=== PATIENT | female | born 1945 | race Asian ===

== ENCOUNTER → 2017-04-05 | Outpatient (CLI) | payer MEDICARE, OTHER ==
[~2017-04-05] MED LIST: CAND4 PO; METF500T4 PO; SIMV-259 PO
== END | disposition home or self-care (01) ==
LOC: RADPV 08:53
PROVIDERS: ATTEND Internal Medicine Cardiovascular Disease
DX: I08.3 Combined rheumatic disorders of mitral, aortic and tricuspid valves (principal)
CPT/HCPCS: 93306